=== PATIENT | female | born 1985 | race Caucasian/White ===

== ENCOUNTER 2019-01-06 15:41 | Observation (INO) ==
[2019-01-06] MEDS: ACETAMINOPHEN 325 MG TABLET PO PRN ×2 (16:05→21:47)
[2019-01-06] MEDS: LACTATED RINGERS 1,000 ML IV SCH (16:06)
[2019-01-06 18:28] LABS: Basophils % 0.2 % (0.0-0.8); Eosinophils % 0.4 % (0.00-10.9); Immature Granulocytes % 0.4 %; Immature Granulocytes Absolute 0.03 #; Lymphocytes # 1.1 10*3/uL (1.4-4.0); Mean Corpuscular HGB Conc 33.3 GM/DL (32-36); Mean Corpuscular Hemoglobin 30 PG (27-34); Mean Corpuscular Volume 89.3 FL (87-102); Mean Platelet Volume 9.9 FL (9.6-12.0); Monocytes # 0.7 10*3/uL (0.11-0.8); Monocytes % 8.5 % (1.7-12.7); Neutrophils # 6.4 10*3/uL (1.4-7.4); Neutrophils % 77.5 % (38.7-73.9); Platelet Count 209 T/CUMM (130-400); Red Blood Count 3.36 MC/CUMM (3.8-5.5); Red Cell Distribution Width 13.7 % (9.3-17.3); White Blood Count 8.3 T/CUMM (4-12)
[2019-01-06] MEDS ORDERED: levETIRAcetam 500 MG TABLET PO SCH (21:00)
[2019-01-07] MEDS: LACTATED RINGERS 1,000 ML IV SCH (00:03)
[2019-01-07 00:12] VITALS: BP 87/52
[2019-01-07 07:06] LABS: Basophils % 0.4 % (0.0-0.8); Eosinophils # 0.1 10*3/uL (0.0-0.87); Eosinophils % 1.5 % (0.00-10.9); Hematocrit 28.2 VOL% (35.7-47.0); Hemoglobin 9.2 GM/DL (12.0-16.0); Immature Granulocytes % 0.6 %; Immature Granulocytes Absolute 0.03 #; Lymphocytes # 0.7 10*3/uL (1.4-4.0); Lymphocytes % 13.4 % (21.3-54.2); Mean Corpuscular HGB Conc 32.6 GM/DL (32-36); Mean Corpuscular Hemoglobin 30 PG (27-34); Mean Corpuscular Volume 92.2 FL (87-102); Mean Platelet Volume 9.8 FL (9.6-12.0); Monocytes # 0.5 10*3/uL (0.11-0.8); Monocytes % 9.2 % (1.7-12.7); Neutrophils # 4.1 10*3/uL (1.4-7.4); Neutrophils % 74.9 % (38.7-73.9); Platelet Count 169 T/CUMM (130-400); Red Blood Count 3.06 MC/CUMM (3.8-5.5); Red Cell Distribution Width 14.2 % (9.3-17.3); White Blood Count 5.4 T/CUMM (4-12)
[2019-01-07 07:29] LABS: Alanine Aminotransferase 12 U/L (13-56); Albumin 2.4 G/DL (3.4-5.0); Alkaline Phosphatase 37 U/L (45-117); Aspartate Amino Transferase 12 U/L (0-37); Bilirubin,Total < 0.39 MG/DL (0.2-1.0); Blood Urea Nitrogen 8 MG/DL (7-18); Calcium 8.2 MG/DL (8.5-10.1); Glucose 78 MG/DL (74-106); Osmolality,Calculated 273.5 MOS/KG (273-304); Potassium 4.1 MMOL/L (3.5-5.1); Sodium 139 MMOL/L (136-145); Total Protein 5.9 G/DL (6.4-8.3)
== END 2019-01-07 13:50 | disposition home or self-care (01) ==
LOC: N.LDOUT 15:41 → N.LD 15:43 → INTOOBSV 16:39 → N.LD 16:39 → N.OB 01-07 08:55
PROVIDERS: ADMIT Obstetrics & Gynecology; ATTEND Obstetrics & Gynecology

== ENCOUNTER 2019-05-17 05:41 | Inpatient (IN) ==
[2019-05-17] MEDS ORDERED: MEPERIDINE 25 MG/1 ML VIAL IV PRN (05:52)
[2019-05-17] MEDS ORDERED: ONDANSETRON 4 MG/2 ML VIAL IV PRN (05:52)
[2019-05-17] MEDS ORDERED: OXYTOCIN/LR 20 UNIT/1,000 ML BAG IV SCH (06:00)
[2019-05-17] MEDS: LACTATED RINGERS 1,000 ML IV SCH ×2 (06:15→11:02)
[2019-05-17 06:22] LABS: Basophils % 0.3 % (0.0-0.8); Eosinophils % 0.3 % (0.00-10.9); Hemoglobin 11.3 GM/DL (12.0-16.0); Immature Granulocytes % 0.4 %; Immature Granulocytes Absolute 0.03 #; Lymphocytes # 1.1 10*3/uL (1.4-4.0); Mean Corpuscular HGB Conc 31.4 GM/DL (32-36); Mean Corpuscular Volume 84.9 FL (87-102); Mean Platelet Volume 11.8 FL (9.6-12.0); Monocytes % 8.2 % (1.7-12.7); Neutrophils % 74.8 % (38.7-73.9); Platelet Count 269 T/CUMM (130-400); Red Blood Count 4.24 MC/CUMM (3.8-5.5); Red Cell Distribution Width 13.9 % (9.3-17.3); White Blood Count 6.9 T/CUMM (4-12)
[2019-05-17 06:40] LABS: Albumin 3.2 G/DL (3.4-5.0); Bilirubin,Total 0.4 MG/DL (0.2-1.0); Calcium 9.1 MG/DL (8.5-10.1); Osmolality,Calculated 270.8 MOS/KG (273-304); Total Protein 8.6 G/DL (6.4-8.3)
[2019-05-17] MEDS ORDERED: LACTATED RINGERS 250 ML IV PRN (08:56)
[2019-05-17] MEDS ORDERED: FAMOTIDINE 20 MG/2 ML VIAL IV ONE (08:56)
[2019-05-17] MEDS ORDERED: CITRIC ACID/SODIUM CITRATE 30 ML UDCUP PO ONE (08:56)
[2019-05-17] MEDS ORDERED: NALOXONE 0.4 MG/ML VIAL IV PRN (08:56)
[2019-05-17] MEDS ORDERED: diphenhydrAMINE 50 MG/1 ML VIAL IV PRN ×2 (08:56)
[2019-05-17] MEDS ORDERED: ePHEDrine 50 MG/ML AMP IV PRN (08:56)
[2019-05-17] MEDS ORDERED: LACTATED RINGERS 1,000 ML IV ONE (08:56)
[2019-05-17] MEDS ORDERED: fentaNYL 2 MCG/ROPIV 0.2% EPID 100 ML EPIDURAL SCH (09:00)
[2019-05-17] MEDS ORDERED: LACTATED RINGERS 1,000 ML IV SCH ×2 (09:00)
[2019-05-17 11:04] LABS: Apearance,Urine CLEAR (Clear); Bacteria,Urine Occasional /HPF (Few); Bilirubin,Urine Negative (Negative); Blood, Urine Negative (Negative); Glucose,Urine (UA) Negative (Negative); Ketones,Urine 5 mg/dL (Negative); Mucus,Urine Occasional /LPF (Occasional); Nitrite,Urine Negative (Negative); Protein,Urine Negative; RBC,Urine <1 /HPF (0-4); Urine Color Yellow (Yellow); Urine Specific Gravity 1.008 (1.001-1.035); Urine Urobilinogen < 2.0 EU/DL (0.2-1.0)
[2019-05-17] MEDS ORDERED: DIPH/TET/ACEL PERT BOOSTER VACCINE 0.5 ML VIAL IM ONE (15:59)
[2019-05-17] MEDS ORDERED: HYDROCORTISONE 2.5% RECTAL CREAM 30 GM TUBE TOP PRN (15:59)
[2019-05-17] MEDS ORDERED: RHO(D) IMMUNE GLOBULIN 300 MCG SYRINGE IM ONE (15:59)
[2019-05-17] MEDS ORDERED: WITCH HAZEL PADS 100/JAR TOP PRN (15:59)
[2019-05-17] MEDS ORDERED: LANOLIN 50% CREAM 0.3 OZ TUBE TOP PRN (15:59)
[2019-05-17] MEDS ORDERED: MEASLES/MUMPS/RUBELLA VACCINE 0.5 ML VIAL SUBCUT ONE (15:59)
[2019-05-17] MEDS ORDERED: BISACODYL 10 MG SUPP RECTAL PRN (15:59)
[2019-05-17] MEDS ORDERED: oxyCODONE/ACETAMINOPHEN 5-325 MG TABLET PO PRN ×2 (15:59)
[2019-05-17] MEDS ORDERED: BENZOCAINE 20%/MENTHOL 0.5% SPRAY 56 GM CAN TOP PRN (15:59)
[2019-05-17] MEDS ORDERED: ACETAMINOPHEN 325 MG TABLET PO PRN (15:59)
[2019-05-17] MEDS ORDERED: OXYTOCIN/LR 20 UNIT/1,000 ML BAG IV ONE (16:03)
[2019-05-17] MEDS: IBUPROFEN 800 MG TABLET PO PRN ×2 (18:05→23:35)
[2019-05-17] MEDS: DOCUSATE SODIUM 100 MG CAPSULE PO SCH (22:50)
[2019-05-18 05:01] LABS: Basophils % 0.4 % (0.0-0.8); Eosinophils # 0.1 10*3/uL (0.0-0.87); Eosinophils % 0.7 % (0.00-10.9); Hematocrit 27.6 VOL% (35.7-47.0); Hemoglobin 8.6 GM/DL (12.0-16.0); Immature Granulocytes % 0.4 %; Immature Granulocytes Absolute 0.03 #; Lymphocytes # 1.2 10*3/uL (1.4-4.0); Lymphocytes % 14.2 % (21.3-54.2); Mean Corpuscular HGB Conc 31.2 GM/DL (32-36); Mean Corpuscular Volume 84.4 FL (87-102); Mean Platelet Volume 11.7 FL (9.6-12.0); Monocytes % 6.8 % (1.7-12.7); Neutrophils % 77.5 % (38.7-73.9); Platelet Count 186 T/CUMM (130-400); Red Blood Count 3.27 MC/CUMM (3.8-5.5); Red Cell Distribution Width 13.5 % (9.3-17.3); White Blood Count 8.2 T/CUMM (4-12)
[2019-05-18] MEDS: DOCUSATE SODIUM 100 MG CAPSULE PO SCH ×2 (09:12→20:52)
[2019-05-18] MEDS: POTASSIUM CHLORIDE 20 MEQ TABLET PO SCH ×2 (09:12→20:52)
[2019-05-18] MEDS: FERROUS SULFATE 325 MG TABLET PO SCH ×2 (09:12→20:52)
[2019-05-18] MEDS: IBUPROFEN 800 MG TABLET PO PRN (09:18)
[2019-05-19 08:07] VITALS: BP 108/85
[2019-05-19] MEDS: DOCUSATE SODIUM 100 MG CAPSULE PO SCH (08:54)
[2019-05-19] MEDS: FERROUS SULFATE 325 MG TABLET PO SCH (08:55)
[2019-05-19] MEDS: POTASSIUM CHLORIDE 20 MEQ TABLET PO SCH (08:55)
== END 2019-05-19 11:00 | disposition home or self-care (01) | DRG 807 ==
LOC: N.LDOUT 05:41 → N.LD 05:44 → N.OB 15:54
PROVIDERS: ADMIT Obstetrics & Gynecology; ATTEND Obstetrics & Gynecology